=== PATIENT | female | born 1990 | race Caucasian/White ===

== ENCOUNTER 2022-07-25 14:37 | Emergency (ER) | payer SELFPAY ==
[~2022-07-25] VITALS: Ht 157 cm; Wt 82.0 kg
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
[2022-07-25 15:40] VITALS: BP 121/85
== END 2022-07-25 15:35 | disposition home or self-care (01) ==
LOC: ER 14:42
DX: S60.221A Contusion of right hand, initial encounter (principal); W22.8XXA Striking against or struck by other objects, initial encounter
CPT/HCPCS: 73130